=== PATIENT | male | born 1970 | race Caucasian/White ===

== ENCOUNTER → 2017-04-13 | Outpatient (CLI) | payer BC ==
--- NOTE | 2017-04-13 12:25 | RAD ---
Examination: Chest, PA and lateral views History: SOB, chest pressure Findings: Normal appearance of heart, lungs, mediastinum and pleural surfaces. Impression: Chest examination within normal limits. Reported By:
[2017-04-13 12:35] LABS: BASOPHILS # (AUTO) 0.1 X10^3/uL (0.0-0.1); BASOPHILS % (AUTO) 0.9 % (0.2-1.0); EOSINOPHILS # (AUTO) 0.1 x10^3/uL (0.0-0.2); EOSINOPHILS % (AUTO) 0.5 % (0.9-2.9); HEMATOCRIT 46.6 % (42.0-54.0); HEMOGLOBIN 16.1 g/dL (13.5-18.0); LYMPHOCYTES # (AUTO) 2.3 X10^3/uL (1.3-2.9); LYMPHOCYTES % (AUTO) 19.8 % (21.0-51.0); MEAN CORPUSCULAR HEMOGLOBIN 31.7 pg (27.0-34.0); MEAN CORPUSCULAR HGB CONC 34.6 g/dL (33.0-35.0); MEAN CORPUSCULAR VOLUME 91.4 fL (80.0-100.0); MEAN PLATELET VOLUME 8.2 fL (7.4-11.0); MONOCYTES # (AUTO) 0.7 x10^3/uL (0.3-0.8); MONOCYTES % (AUTO) 5.8 % (0.0-13.0); NEUTROPHILS # (AUTO) 8.3 x10^3/uL (2.2-4.8); PLATELET COUNT 217 X10^3/uL (150.0-450.0); RED BLOOD COUNT 5.09 X10^6/uL (4.7-6.0); RED CELL DISTRIBUTION WIDTH 13.4 % (11.6-16.5); WHITE BLOOD COUNT 11.4 X10^3/uL (3.6-10.0)
[2017-04-13 12:57] LABS: ALANINE AMINOTRANSFERASE 74 Units/L (12-78); ALBUMIN 4.4 g/dL (3.4-5.0); ALKALINE PHOSPHATASE 57 Units/L (46-116); ASPARTATE AMINO TRANSFERASE 34 Units/L (15-37); BLOOD UREA NITROGEN 17 mg/dL (7-18); CALCIUM 9.3 mg/dL (8.5-10.1); CARBON DIOXIDE 29.8 mmol/L (21-32); CHLORIDE 107 mmol/L (98-107); CHOL/HDL RATIO 3.9 (0.0-5.0); CHOLESTEROL 193 mg/dL (0-200); CREATININE 0.95 mg/dL (0.70-1.30); HDL CHOLESTEROL 49 mg/dL (40-60); SODIUM 144 mmol/L (136-145); TRIGLYCERIDES 73 mg/dL (0-150); TSH (3RD GENERATION) 0.585 uIU/mL (0.358-3.74); eGFR BLACK RACES > 60 (>60); eGFR NON BLACK RACES > 60 (>60)
== END ==
LOC: LAB 12:07
PROVIDERS: ATTEND Nurse Practitioner Family
DX: E78.4 Other hyperlipidemia (principal); R53.83 Other fatigue; E55.9 Vitamin D deficiency, unspecified; F41.1 Generalized anxiety disorder; R06.02 Shortness of breath
CPT/HCPCS: 36415; 71020; 80053; 80061; 82306; 82607; 83918; 84443; 85025

== ENCOUNTER → 2017-05-10 | Outpatient (CLI) | payer BC ==
--- NOTE | 2017-05-10 12:37 | MRI ---
HISTORY: Neck pain and cervical radiculopathy. Noncontrast MRI examination of the cervical spine. Technique: Sagittal T1, sagittal T2, axial T2 weighted images were obtained. Findings: There is focal lordosis seen at the level C5-6. Alignment of the cervical spine is otherwis e maintained. There is moderate spondylosis and facet DJD seen from C4-C6 with multilevel disc osteop hyte complexes and diffuse cervical disc desiccation. There is no evidence for an acute fracture or s ubluxation. No aggressive bone marrow lesion is seen. There is no evidence for cerebral tonsillar ect opia. The posterior elements appear diffusely intact. There is no evidence for cord expansion, cord e scooby, or abnormal cord signal. No intrathecal mass lesions or intrathecal hemorrhage is seen. There i s no cervical soft tissue masses appreciated. C2 -- C3: No significant disc pathology or foraminal/spinal canal stenosis. C3 -- C4: No significant disc pathology or foraminal/spinal canal stenosis. C4 -- C5: Broad-based, posterior, disc osteophyte complex which combines with facet DJD to create mod erate spinal canal stenosis and moderate bilateral foraminal narrowing. C5 -- C6: Broad-based, posterior, disc osteophyte complex which combines with facet DJD to create sev ere central spinal canal stenosis and severe bilateral foraminal narrowing. C6 -- C7: No significant disc pathology or foraminal/spinal canal stenosis. C7 -- T1: No significant disc pathology or foraminal/spinal canal stenosis. IMPRESSION: Moderate cervical spondylotic change with C4 through C6 central disc osteophyte complexes and facet D CHIQUITA which creates moderate to severe foraminal and spinal canal stenosis at these levels, as detailed above. Findings are most severe at C5-6 (where there is a focal lordosis and disc osteophyte complex which creates severe spinal canal stenosis and severe foraminal stenosis and probable neural impingem ent at C5-6). Please correlate. No evidence for cervical cord myelomalacia. No pathologic bone marrow edema seen. Reported By:
--- NOTE | 2017-05-10 13:17 | RAD ---
Examination: X-rays of the cervical spine. Clinical History: Cervicalgia, neck pain radiating down arms. Technique: Three views of the cervical spine were obtained. Comparison: None available. Findings: The vertebral body alignment is within normal limits. There is narrowing of the C4-C5 and C5-C6 intervertebral disc spaces. Mild vertebral body osteophytos is is seen at the C4-C5 and C5-C6 levels. Mild facet joint degenerative changes are noted at multiple levels in the cervical spine. No acute fracture, dislocation or destructive bony lesion is noted. No soft tissue abnormality is noted. Impression: 1. No acute fracture or dislocation. 2. Cervical spondylosis, as described above. Reported By:
== END | disposition home or self-care (01) | DRG 552 ==
LOC: RAD 10:37
PROVIDERS: ATTEND Nurse Practitioner Family
DX: M54.2 Cervicalgia (principal); M47.892 Other spondylosis, cervical region
CPT/HCPCS: 72040; 72141